=== PATIENT | male | born 1950 | race Two or more races ===

== ENCOUNTER 2021-08-03 07:03 | Day surgery (SDC) | payer MEDICARE ==
[~2021-08-03] VITALS: Ht 170.2 cm; Wt 90.3 kg
[~2021-08-03 07:03] MED LIST: AML5T GT; AMLO-496 PO; ATOR20TA PO; EZET10TA22 PO; RANO500T3 PO; TIZA4CAP PO; TRAZ100T3 PO
[2021-08-03] MEDS ORDERED: LIDOCAINE 2%HCL (LOCAL ANESTH.) INJ 20ML MDV ONE ×2 (07:25→09:47)
[2021-08-03] MEDS ORDERED: ANGIOMAX 250 MG VIAL IV ONE ×2 (09:05→09:46)
[2021-08-03] MEDS ORDERED: HEPARIN SODIUM (PORCINE) 5000 UNITS/ML 1ML VIAL ONE ×2 (09:06→09:56)
[2021-08-03] MEDS ORDERED: MIDAZOLAM HCL 2MG/2ML 2ml VIAL (1mg/ml) ONE ×2 (09:06→09:46)
[2021-08-03] MEDS ORDERED: SODIUM CHL 0.9% 0 ML ONE ×2 (09:06→09:46)
[2021-08-03] MEDS ORDERED: VERAPAMIL 2.5MG/ML INJ 2ML VIAL IV ONE ×2 (09:06→09:56)
[2021-08-03] MEDS ORDERED: fentaNYL CITRATE 100 MCG/2 ML VL ONE ×2 (09:06→09:46)
[2021-08-03 09:46] VITALS: BP 133/72
[2021-08-03] MEDS ORDERED: IODIXANOL 320MG/ML 100ML BTL IV ONE (10:02)
== END 2021-08-03 13:08 | disposition home or self-care (01) ==
LOC: CATH 07:03
PROVIDERS: ATTEND Internal Medicine Cardiovascular Disease
DX: R94.39 Abnormal result of other cardiovascular function study (principal); I25.10 Atherosclerotic heart disease of native coronary artery without angina pectoris; I10 Essential (primary) hypertension; E78.5 Hyperlipidemia, unspecified; Z82.49 Family history of ischemic heart disease and other diseases of the circulatory system; Z95.5 Presence of coronary angioplasty implant and graft; Z79.82 Long term (current) use of aspirin; Z98.890 Other specified postprocedural states; Z79.899 Other long term (current) drug therapy; Z20.822 Contact with and (suspected) exposure to COVID-19
CPT/HCPCS: 93458; 93571; 99152; J2250; Q9967